=== PATIENT | male | born 1990 | race Caucasian/White ===

== ENCOUNTER 2017-03-18 09:45 | Emergency (ER) | payer MEDICAID ==
[2017-03-18] MEDS ORDERED: ASPIRIN 325 MG TABLET PO ONE (10:16)
[2017-03-18 10:41] LABS: ABSOLUTE EOSINOPHILS # (AUTO) 0.1 10^3/uL (0.0-0.6); ABSOLUTE LYMPHOCYTES (AUTO) 1.3 10^3/uL (0.5-4.7); ABSOLUTE MONOCYTES (AUTO) 0.5 10^3/uL (0.1-1.4); ABSOLUTE NEUT (AUTO) 4.2 10^3/uL (1.7-8.2); BASOPHILS % (AUTO) 0.3 % (0-2); EOSINOPHILS % (AUTO) 1.4 % (0-6); HEMATOCRIT 47.7 % (37.9-51.0); HEMOGLOBIN 16.3 g/dL (13.5-17.0); HGB HCT DIFFERENCE 1.2; LYMPHOCYTES % (AUTO) 21.3 % (13-45); MEAN CORPUSCULAR HEMOGLOBIN 29.8 pg (27.0-33.4); MEAN CORPUSCULAR HGB CONC 34.3 g/dL (32.0-36.0); MEAN CORPUSCULAR VOLUME 87 fl (80-97); RED BLOOD COUNT 5.49 10^6/uL (4.35-5.55); RED CELL DISTRIBUTION WIDTH 12.6 % (11.5-14.0); WHITE BLOOD COUNT 6.1 10^3/uL (4.0-10.5)
[2017-03-18 10:43] LABS: APPEARANCE,URINE CLEAR; BILIRUBIN,URINE NEGATIVE (NEGATIVE); GLUCOSE, URINE NEGATIVE (NEGATIVE); KETONES,URINE NEGATIVE (NEGATIVE); LEUKOCYTE ESTERASE,URINE NEGATIVE (NEGATIVE); NITRITE,URINE NEGATIVE (NEGATIVE); PROTEIN,URINE NEGATIVE (NEGATIVE); URINE SPECIFIC GRAVITY 1.008; UROBILINOGEN,URINE NEGATIVE mg/dL (<2.0)
--- NOTE | 2017-03-18 10:50 | ER Document Report ---
ED Cardiac - General Mode of Arrival: Ambulatory Information source: Patient TRAVEL OUTSIDE OF THE [place] IN LAST 30 DAYS: No - HPI Patient complains to provider of: Chest pain, Chest tightness Associated symptoms: Other - see above <BATSHEVA ASHBY - Last Filed: 03/18/17 10:53> <LOUISA WASHINGTON - Last Filed: 03/18/17 19:56> - General Chief Complaint: Chest Pain Stated Complaint: CHEST PAIN Time Seen by Provider: 03/18/17 10:15 Notes: Patient is a 26 year old male who presents to the ED with complaints of intermittent chest pain (tightness) for the past 2 days. Patient states over the past 5-6 years, he has had intermittent episodes of minor chest pain and tightening that lasted for a couple minutes at a time but has not had an episode over the past year until the past 2 days. Patient states yesterdays episode was different in that it lasted and that he also had associated symptoms of confusion, difficultly forming complete symptoms, and his breath being "out of whack". Patient states he was working at a computer when symptoms presented. Patient states he was seen in Urgent Care yesterday however by the time he was seen the symptoms had subsided, patient had a negative workup but he has not been given the results of his lab work. Patient states he felt improved until this morning when he started having a second episode. Patient denies any chest pain at this time. 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 Patient states the EMT on site at the [facility] ran some tests and stated he had a "slight drag in his left arm". Patient states on the car ride to the ED today his symptoms subsided again. Patient states he has been nauseous and had some episodes of diarrhea on Tuesday but has not had any since then, patient denies any vomiting. Patient has been surfing recently and denies any close calls with drowning or water up the nose. No other concerns or complaints at this time. (BATSHEVA ASHBY) - Related Data Allergies/Adverse Reactions: No Known Allergies Allergy (Unverified 03/18/17 10:02) Past Medical History - General Information source: Patient - Social History Smoking Status: Never Smoker Chew tobacco use (# tins/day): No Frequency of alcohol use: Occasional Drug Abuse: Marijuana Family History: Other - Heart Attack Renal/ Medical History: Denies: Hx Peritoneal Dialysis Surgical Hx: Negative - Immunizations Hx Diphtheria, Pertussis, Tetanus Vaccination: Yes <RIGOBERTO ASHBYANDRA - Last Filed: 03/18/17 10:53> Review of Systems - Review of Systems Constitutional: No symptoms reported EENT: No symptoms reported Cardiovascular: See HPI, Chest pain Respiratory: See HPI, Short of breath Gastrointestinal: See HPI, Diarrhea, Nausea. denies: Vomiting Genitourinary: No symptoms reported Male Genitourinary: No symptoms reported Musculoskeletal: No symptoms reported Skin: No symptoms reported Hematologic/Lymphatic: No symptoms reported Neurological/Psychological: See HPI, Confusion, Speech impairment, Numbness - left side of body <SYMONENEVAEHBATSHEVA - Last Filed: 03/18/17 10:53> Physical Exam <SYMONEBATSHEVA - Last Filed: 03/18/17 10:53> <LOUISA WASHINGTON - Last Filed: 03/18/17 19:56> - Vital signs Vitals: Temp Pulse Resp BP Pulse Ox 97.8 F 75 14 126/84 H 97 03/18/17 09:48 03/18/17 09:48 03/18/17 09:48 03/18/17 09:48 03/18/17 09:48 - Notes Notes: GENERAL: Alert, interacts well. No acute distress. HEAD: Normocephalic, atraumatic. EYES: Pupils equal, round, and reactive to light. Extraocular movements intact. ENT: Oral mucosa moist, tongue midline. Nares patent, no nasal septal hematoma, TM's intacts. Geographic tongue. NECK: Full range of motion. Supple. Trachea midline. LUNGS: Clear to auscultation bilaterally, no wheezes, rales, or rhonchi. No respiratory distress. HEART: Regular rate and rhythm. No murmurs, gallops, or rubs. ABDOMEN: Soft, non-tender. Non-distended. Bowel sounds present in all 4 quadrants. EXTREMITIES: Moves all 4 extremities spontaneously. No edema, radial and dorsalis pedis pulses 2/4 bilaterally. No cyanosis. No pronator drift, no signs of ataxia. NEUROLOGICAL: Alert and oriented x3. Normal speech. cranial nerves II through XII grossly intact. Biceps and patellar DTRs 2+ bilaterally. Finger to nose and heel to sharpe test are negative. PSYCH: Normal affect, normal mood. SKIN: Warm, dry, normal turgor. No rashes or lesions noted. (BATSHEVA ASHBY) Course - Laboratory Result Diagrams: 03/18/17 10:23 03/18/17 10:23 <BATSHEVA ASHBY - Last Filed: 03/18/17 10:53> - Laboratory Result Diagrams: 03/18/17 10:23 03/18/17 10:23 <LOUISA WASHINGTON - Last Filed: 03/18/17 19:56> - Re-evaluation Re-evalutation: 03/18/17 12:49 CBC unremarkable, CMP unremarkable, cardiac enzymes negative, urinalysis negative, urine drug screen negative, chest x-ray shows no acute process, EKG is nonischemic, there is no ectopy on the monitor while he was being observed. Patient did have one episode of slight twinging in the chest wall on the monitor and no monitor changes corresponded with this twinging. No suspicion for ischemic cardiac disease, no evidence of concerning ectopy or conduction delays. Patient will be discharged home, recommended follow-up with stencil inspector as an outpatient for Holter monitor. Patient will also be given Zantac in case this is esophageal spasm from reflux disease. (LOUISA WASHINGTON) - Vital Signs Vital signs: Temp Pulse Resp BP Pulse Ox 97.8 F 75 23 H 117/81 99 03/18/17 09:48 03/18/17 09:48 03/18/17 13:01 03/18/17 13:01 03/18/17 13:01 - EKG Interpretation by Me Additional EKG results interpreted by me: 03/18/17 12:50 EKG shows sinus rhythm at a rate of 66, interventricular conduction delay nonspecific, no ST segment elevations or depressions, no T-wave inversions per my interpretation. (LOUISA WASHINGTON) Discharge <BATSHEVA ASHBY - Last Filed: 03/18/17 10:53> <LOUISA WASHINGTON - Last Filed: 03/18/17 19:56> - Discharge Clinical Impression: Intermittent chest pain, Chest pain with low risk of acute coronary syndrome Condition: Stable Disposition: HOME, SELF-CARE Instructions: Chest Pain of Unclear Cause ([facility]) Additional Instructions: Please follow-up with a stencil inspector as an outpatient. I recommend you have a Holter or event monitor placed. This will track your heart rate and the types of rhythms that you are having over the period of 24-48 hours. This can see whether or not your symptoms correspond with any abnormal heart rhythms. Today we did not see any signs of heart attack, abnormal heart rhythm or pneumonia on your chest x-ray. I have also started you on an antacid medication. Please take the Zantac 150 mg twice a day for the next 2 weeks. If it completely resolves your symptoms then you do not need to see a stencil inspector. Please return to the emergency department for any new or concerning symptoms. Prescriptions: Ranitidine HCl [Zantac] 150 mg PO BID #28 tablet Referrals: DANA MANUEL MD [ACTIVE STAFF] - Follow up in 1 week [place] Attestation: 03/18/17 19:56 I personally performed the services described in the documentation, reviewed and edited the documentation which was dictated to the scribe in my presence, and it accurately records my words and actions. (LOUISA WASHINGTON) Scribe Documentation - Scribe Written by Daniel:: daniel Mcconnell, 03/18/2017, 1054 acting as scribe for :: Nathan <BATSHEVA ASHBY - Last Filed: 03/18/17 10:53>
--- NOTE | 2017-03-18 10:51 | RADIOLOGY REPORT (SQ) ---
EXAM DESCRIPTION: CHEST PA/LAT COMPLETED DATE/TIME: 03/18/2017 10:34 am REASON FOR STUDY: chest pain COMPARISON: None. EXAM PARAMETERS: NUMBER OF VIEWS: two views TECHNIQUE: Digital Frontal and Lateral radiographic views of the chest acquired. RADIATION DOSE: NA LIMITATIONS: none FINDINGS: LUNGS AND PLEURA: No opacities, masses or pneumothorax. No pleural effusion. MEDIASTINUM AND HILAR STRUCTURES: No masses or contour abnormalities. HEART AND VASCULAR STRUCTURES: Heart normal size. No evidence for failure. BONES: No acute findings. HARDWARE: None in the chest. OTHER: No other significant finding. IMPRESSION: NO SIGNIFICANT RADIOGRAPHIC FINDING IN THE CHEST. TECHNICAL DOCUMENTATION: JOB ID: [id number] [employer]- All Rights Reserved
[2017-03-18 10:57] LABS: ALANINE AMINOTRANSFERASE 23 U/L (21-72); ALBUMIN 4.7 g/dL (3.5-5.0); ALKALINE PHOSPHATASE 63 U/L (38-126); ANION GAP 11 (5-19); ASPARTATE AMINO TRANSFERASE 21 U/L (17-59); BILIRUBIN,DIRECT 0.2 mg/dL (0.0-0.4); BLOOD UREA NITROGEN 14 mg/dL (7-20); CALCIUM 9.2 mg/dL (8.4-10.2); CARBON DIOXIDE 26 mmol/L (22-30); CHLORIDE 105 mmol/L (98-107); CREATINE KINASE 63 U/L (55-170); CREATININE RESULT 0.84 mg/dL (0.52-1.25); GLUCOSE 92 mg/dL (75-110); POTASSIUM 4.1 mmol/L (3.6-5.0); SODIUM 142.1 mmol/L (137-145); TOTAL PROTEIN 7.4 g/dL (6.3-8.2)
[2017-03-18 11:00] LABS: URINE BARBITURATES SCREEN NEGATIVE; URINE METHADONE SCREEN NEGATIVE; URINE OPIATES LOW NEGATIVE; URINE PHENCYCLIDINE SCREEN NEGATIVE
[2017-03-18 11:14] LABS: CREATINE KINASE MB 0.52 ng/mL (<4.55)
[2017-03-18 11:17] LABS: TROPONIN I < 0.012 ng/mL
[2017-03-18 13:13] VITALS: BP 117/81
--- NOTE | 2017-03-18 20:17 | EKG REPORT ---
SEVERITY:- NORMAL ECG - SINUS RHYTHM : Confirmed by: Bradley Leonardo MD 18-Mar-2017 20:17:21
== END 2017-03-18 13:20 | disposition home or self-care (01) ==
LOC: ER 09:45
DX: R07.9 Chest pain, unspecified (principal); R20.0 Anesthesia of skin; R47.9 Unspecified speech disturbances; R19.7 Diarrhea, unspecified; R11.0 Nausea
CPT/HCPCS: 36415; 71020; 80053; 80307; 81001; 82550; 82553; 84484; 85025; 93005; 93010; 99285